=== PATIENT | female | born 1970 | race Caucasian/White ===

== ENCOUNTER 2023-09-03 10:59 | Emergency (ER) | payer SELFPAY ==
[2023-09-03] MEDS ORDERED: Sterile H2O 10 ml IJ ONE (11:17)
[2023-09-03] MEDS ORDERED: solu-MEDROL ONE (11:17)
[2023-09-03] MEDS ORDERED: Epinephrine Preservative Free 1 MG/ML ONE (11:17)
[2023-09-03] MEDS ORDERED: BENADRYL 50 MG/ML ONE (11:17)
[2023-09-03 11:20] VITALS: TEMP 97.5; O2SAT 98
[2023-09-03] MEDS: solu-MEDROL 125 MG, Sterile H2O 10 ml 2 ML IV ONE (11:27)
[2023-09-03] MEDS: BENADRYL 50 MG/ML IV ONE (11:30)
[2023-09-03 11:32] LABS: Absolute Neutrophil Ct (ANC) 4.32 x10^3/uL (1.4-6.9); BASOPHIL % 0.7 % (0.0-0.4); Basophil (Absolute #) 0.07 x10^3/uL (0-0.4); Eosinophil % 3.3 % (0.00-5.0); Eosinophil (Absolute #) 0.35 x10^3/uL (0-0.5); IMMATURE GRAN # 0.02 x10^3u/L (0.00-0.03); IMMATURE GRAN % 0.2 % (0.00-0.4); Lymphocyte (Absolute #) 4.88 x10^3/uL (1.0-4.6); Lymphocytes % 46.3 % (24.0-44.0); Mean Cell Volume 84.8 fL (78-100); Mean Corpuscular Hemoglobin 28.3 pg (26-32); Mean Corpuscular Hgb Concent. 33.3 g/dL (32-36); Mean Platelet Volume 9.6 fL (7.5-11.0); Monocyte (Absolute #) 0.89 x10^3/uL (0.0-1.3); Monocytes % 8.5 % (0.0-12.0); Platelet Count 497 x10^3/uL (150-450); Red Blood Count 4.95 x10^6/uL (4.1-5.4); Red Cell Distribution Width 14.9 % (11.5-14.0); White Blood Count 10.5 x10^3/uL (4.0-10.5)
[2023-09-03] MEDS: Epinephrine Preservative Free 1 MG/ML SQ ONE (11:32)
[2023-09-03 11:43] VITALS: BP 149/95; PULSE 92; RESP 18
[2023-09-03 11:43] LABS: ALBUMIN 3.9 g/dL (3.5-5.0); BILIRUBIN,TOTAL 0.5 mg/dL (0.2-1.3); Calcium 9.1 mg/dL (8.4-10.2); Creatinine 1 0.69 mg/dL (0.52-1.04); EST GLOMERULAR FILTRATION RATE 104.4 ML/MIN; Total Protein 7.9 g/dL (6.3-8.2)
[2023-09-03] MEDS ORDERED: K-LYTE ONE (11:52)
[2023-09-03] MEDS: K-LYTE PO ONE (11:53)
--- NOTE | 2023-09-03 12:09 | ERPHSYRPT ---
- History of Present Illness Time Seen by Provider: 09/03/23 11:15 Source: patient Exam Limitations: no limitations Patient Subjective Stated Complaint: Allergic reaction Triage Nursing Assessment: Patient ambulated back to ED and transferred self to bed. Patient A+O x3. Patient's skin pink, warm and dry. Patient states 1 hour prior to coming to ED she was stung on left foot by a bee. Patient states she is allergic and has prophylaxis with bee stings. Patient here from out of town and does not have an epi pen. Patient denies pain or discomfort. Left foot noted to be red and swollen. Physician History: Patient is a 53-year-old white female who presents with an allergy reaction. 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 She does not have an EpiPen and but feels she needs 1 and we will administer 1.She also complains of depression and request since she is new to the area a referral to [facility].She also denies any current problems with swallowing or breathing but did have chest pains earlier. Timing/Duration: today Severity: moderate Allergies/Adverse Reactions: bee venom protein (honey bee) Allergy (Verified 09/03/23 11:01) Hx Influenza Vaccination/Date Given: Yes Hx Pneumococcal Vaccination/Date Given: No Immunizations Up to Date: Yes Travel Risk - International Travel Have you traveled outside of the country in past 3 weeks: No - Emerging Infectious Disease Are you exhibiting symptoms associated with any current EIDs: No - Review of Systems Constitutional: No Fever, No Chills Eyes: No Symptoms Ears, Nose, & Throat: No Symptoms Respiratory: No Cough, No Dyspnea Cardiac: No Chest Pain, No Edema, No Syncope Abdominal/Gastrointestinal: No Abdominal Pain, No Nausea, No Vomiting, No Diarrhea Genitourinary Symptoms: No Dysuria Musculoskeletal: No Back Pain, No Neck Pain Skin: No Rash Neurological: No Dizziness, No Focal Weakness, No Sensory Changes Psychological: Anxiety, Depression Endocrine: No Symptoms All Other Systems: Reviewed and Negative - Past Medical History Pertinent Past Medical History: Yes Neurological History: No Pertinent History ENT History: No Pertinent History Cardiac History: No Pertinent History Respiratory History: Asthma Endocrine Medical History: No Pertinent History Musculoskeletal History: No Pertinent History GI Medical History: No Pertinent History History: No Pertinent History Psycho-Social History: Anxiety Female Reproductive Disorders: No Pertinent History - Past Surgical History Past Surgical History: Yes Neuro Surgical History: No Pertinent History Cardiac: No Pertinent History Respiratory: No Pertinent History Gastrointestinal: Appendectomy, Cholecystectomy Genitourinary: No Pertinent History Musculoskeletal: No Pertinent History Female Surgical History: No Pertinent History - Female History Hx Last Menstrual Period: menopausal Hx Now: No - Social History Smoking Status: Never smoker Exposure to second hand smoke: No Drug Use: none - Nursing Vital Signs Nursing Vital Signs: Initial Vital Signs Temperature 97.5 F 09/03/23 11:04 Pulse Rate 103 H 09/03/23 11:04 Respiratory Rate 19 09/03/23 11:04 Blood Pressure 138/105 09/03/23 11:04 O2 Sat by Pulse Oximetry 98 09/03/23 11:04 Pain Scale Pain Intensity 0 - Physical Exam General Appearance: no apparent distress, alert Eye Exam: PERRL/EOMI, eyes nml inspection Ears, Nose, Throat Exam: normal ENT inspection, TMs normal, pharynx normal, moist mucous membranes Neck Exam: normal inspection, non-tender, supple, full range of motion Respiratory Exam: normal breath sounds, lungs clear, No respiratory distress Cardiovascular Exam: regular rate/rhythm, normal heart sounds, normal peripheral pulses Gastrointestinal/Abdomen Exam: soft, normal bowel sounds, No tenderness, No mass Back Exam: normal inspection, normal range of motion, No CVA tenderness, No vertebral tenderness Extremity Exam: normal range of motion, pelvis stable, other (Swelling of both ankles is noted.) Neurologic Exam: alert, oriented x 3, cooperative, normal mood/affect, nml cerebellar function, nml station & gait, sensation nml, No motor deficits Skin Exam: normal color, warm, dry, No rash Lymphatic Exam: No adenopathy SpO2: 98 - Course Nursing assessment & vital signs reviewed: Yes Ordered Tests: Active Orders 24 hr Category Date Time Status CBC W DIFF Stat Lab 09/03/23 11:15 Completed CMP Stat Lab 09/03/23 11:15 Completed Medication Summary Discontinued Medications Generic Name Dose Route Start Last Admin Trade Name Freq PRN Reason Stop Dose Admin Methylprednisolone Sodium 0 mg 09/03/23 11:13 09/03/23 11:27 Succinate 125 mg/ Sterile IV 09/03/23 11:14 125 mg Water 2 ml STAT ONE Administration Diphenhydramine HCl 25 mg 09/03/23 11:13 09/03/23 11:30 Diphenhydramine Hcl 50 Mg/Ml Vial IV 09/03/23 11:14 25 mg STAT ONE Administration Diphenhydramine HCl Confirm 09/03/23 11:17 Diphenhydramine Hcl 50 Mg/Ml Vial Administered 09/03/23 11:18 Dose 50 mg .ROUTE .STK-MED ONE Epinephrine HCl 0.3 mg 09/03/23 11:13 09/03/23 11:32 Epinephrine 1 Mg/1 Ml Pf Amp 1 Mg/Ml Ml SQ 09/03/23 11:14 0.3 mg STAT ONE Administration Epinephrine HCl Confirm 09/03/23 11:17 Epinephrine 1 Mg/1 Ml Pf Amp 1 Mg/Ml Ml Administered 09/03/23 11:18 Dose 1 mg .ROUTE .STK-MED ONE Methylprednisolone Sodium Succinate Confirm 09/03/23 11:17 Methylprednis Sod Succ 125 Mg/2 Ml Vial Administered 09/03/23 11:18 Dose 125 mg .ROUTE .STK-MED ONE Potassium Bicarbonate 25 meq 09/03/23 11:45 09/03/23 11:53 Potassium Bicarbonate 25 Meq Tab PO 09/03/23 11:46 25 meq STAT ONE Administration Potassium Bicarbonate Confirm 09/03/23 11:52 Potassium Bicarbonate 25 Meq Tab Administered 09/03/23 11:53 Dose 25 meq .ROUTE .STK-MED ONE Sterile Water Confirm 09/03/23 11:17 Water For Injection,Sterile 10 Ml Vial Administered 09/03/23 11:18 Dose 10 ml IJ .STK-MED ONE Lab/Rad Data: Laboratory Result Diagrams 09/03/23 11:15 09/03/23 11:15 Laboratory Results 09/03/23 09/03/23 Range/Units 11:15 11:15 WBC 10.5 (4.0-10.5) x10^3/uL RBC 4.95 (4.1-5.4) x10^6/uL Hgb 14.0 (12.0-16.0) g/dL Hct 42.0 (35-47) % MCV 84.8 (78-100) fL MCH 28.3 (26-32) pg MCHC 33.3 (32-36) g/dL RDW 14.9 H (11.5-14.0) % Plt Count 497 H (150-450) x10^3/uL MPV 9.6 (7.5-11.0) fL Gran % 41.0 (36.0-66.0) % Immature Gran % (Auto) 0.2 (0.00-0.4) % Nucleat RBC Rel Count 0.0 (0.00-0.1) % Eos # (Auto) 0.35 (0-0.5) x10^3/uL Immature Gran # (Auto) 0.02 (0.00-0.03) x10^3u/L Absolute Lymphs (auto) 4.88 H (1.0-4.6) x10^3/uL Absolute Monos (auto) 0.89 (0.0-1.3) x10^3/uL Absolute Nucleated RBC 0.00 (0.00-0.01) x10^3u/L Lymphocytes % 46.3 H (24.0-44.0) % Monocytes % 8.5 (0.0-12.0) % Eosinophils % 3.3 (0.00-5.0) % Basophils % 0.7 (0.0-0.4) % Absolute Granulocytes 4.32 (1.4-6.9) x10^3/uL Basophils # 0.07 (0-0.4) x10^3/uL Sodium 140 (135-145) mmol/L Potassium 3.0 L* (3.5-5.1) mmol/L Chloride 100 (98-107) mmol/L Carbon Dioxide 33 H (22-30) mmol/L Anion Gap 10.0 (5-15) MEQ/L BUN 19 H (7-17) mg/dL Creatinine 0.69 (0.52-1.04) mg/dL Estimated GFR 104.4 ML/MIN Glucose 97 (74-106) mg/dL Calcium 9.1 (8.4-10.2) mg/dL Total Bilirubin 0.50 (0.2-1.3) mg/dL AST 34 (14-36) U/L ALT 33 (0-35) U/L Alkaline Phosphatase 95 (38-126) U/L Serum Total Protein 7.9 (6.3-8.2) g/dL Albumin 3.9 (3.5-5.0) g/dL - Progress Progress: improved Progress Note: 09/03/23 12:03 Patient is improved she will be given materials for referral to the [facility]. She also be given a prescription for an EpiPen. Medical Desision Making - Independent Historian Additional History obtained from: Relative/friend - Diagnostic Testing Diagnostic test were ordered, analyzed, and reviewed by me: Yes - Risk of complications Low Risk: Low risk of morbidity from additional dx testing or treatment - Departure Departure Disposition: Home Clinical Impression: Allergic reaction Condition: Stable Critical Care Time: No Instructions: Insect Bites and Stings (DC) Prescriptions: EPINEPHrine [Epipen 2-Nicholas] 0.3 mg IM DIRECTIONS UNKNOWN 1 Days #1
[2023-09-03] MEDS ORDERED: Ativan 2 MG/1 ML VIAL ONE (12:45)
[2023-09-03] MEDS: Ativan 2 MG/1 ML VIAL IV ONE (12:48)
[2023-09-03] MEDS: Ativan 1 MG PO ONE (12:58)
== END 2023-09-03 13:10 | disposition home or self-care (01) ==
LOC: ED 10:59
DX: T63.441A Toxic effect of venom of bees, accidental (unintentional), initial encounter (principal); R22.43 Localized swelling, mass and lump, lower limb, bilateral
CPT/HCPCS: 36000; 36415; 80053; 85025; 96372; 96374; 96375; 99284; J0171; J1200; J2060; J2919; A9270-GY